=== PATIENT | male | born 1955 | race African-American/Black ===

== ENCOUNTER 2017-11-16 12:19 | Emergency (ER) | payer OTHER ==
[~2017-11-16] VITALS: Ht 188 cm; Wt 109.0 kg
[~2017-11-16 12:19] MED LIST: ALLO300T2 PO; ASPI1TAB57 PO; DICL1GEL7 TOPICAL; HYDR-3535 PO; HYDR50TA3 PO; LOSA100T PO; NEUR400C PO; OMEP20TA93 PO; OXYC-405 PO; SOMA350T PO
[2017-11-16 12:25] VITALS: BP 116/59; PULSE 77; RESP 18; TEMP 99; O2SAT 95
[2017-11-16] MEDS ORDERED: LIDOCAINE HCL 1% PF 30 ML VIAL INFIL ONE (13:00)
[2017-11-16] MEDS ORDERED: TETANUS/DIPHTHERIA TOXOID ADULT 0.5 ML VIAL IM ONE (13:00)
--- NOTE | 2017-11-16 13:19 | PD ---
HPI Chief Complaint: Laceration/Skin Injury Time Seen by Provider: 12:53 Travel History International Travel<30 days: No Contact w/Intl Traveler<30days: No Traveled to known affect area: No History of Present Illness HPI 62-year-old male presents to emergency room with complaint of a cut to his right finger that occurred approximately 3 hours ago from a piece of ice in his deep freezer, and he cannot get the bleeding under control. Denies anticoagulant therapy. Unknown tetanus status. Denies pain. Denies paresthesias, loss of sensation, decreased range of motion to the affected finger. Symptoms are mild in severity. Has tried compression to control bleeding without success. No known aggravating or relieving factors. Primary care provider is Dr. Gandhi. Allergies to codeine. History of hypertension. Has no other medical complaints. No other modifying factors or associated signs and symptoms. PFSH Past Medical History Arthritis: No Asthma: No Autoimmune Disease: No Anxiety: Yes Depression: Yes Heart Rhythm Problems: No Cancer: No Cardiovascular Problems: Yes High Cholesterol: No Chemotherapy: No Chest Pain: No Congestive Heart Failure: No COPD: No Diabetes: No Endocrine: No GERD: Yes Glaucoma: No Genitourinary: No Hepatitis: No Hiatal Hernia: No Hypertension: Yes Immune Disorder: No Kidney Stones: No Musculoskeletal: Yes (ARTHRITIS) Neurologic: No Psychiatric: Yes Reproductive: No Respiratory: No Radiation Therapy: No Renal Failure: No Sickle Cell Disease: No Sleep Apnea: No Thyroid Disease: No Ulcer: No Past Surgical History Abdominal Surgery: Yes (appy) AICD: No Appendectomy: Yes Arteriovenous Shunt: No Body Medical Devices: GASTRIC SLEEVE Ear Surgery: No Endocrine Surgery: No Eye Surgery: No Genitourinary Surgery: Yes (VASECTOMY) Gynecologic Surgery: No Insulin Pump: No Joint Replacement: No Oral Surgery: No Pacemaker: No Other Surgery: Yes Social History Alcohol Use: Yes (OCC BEER) Tobacco Use: No Substance Use: No Allergies-Medications (Allergen,Severity, Reaction): Coded Allergies: codeine (Unverified Allergy, Mild, NAUSEA, 02/11/17) clonidine (Unverified Allergy, Unknown, 02/11/17) enalaprilat (Unverified Allergy, Unknown, 02/11/17) tramadol (Unverified Allergy, Unknown, 02/11/17) Reported Meds & Prescriptions Reported Meds & Active Scripts Active Neurontin (Gabapentin) 400 Mg Cap 400 Mg PO TID Lortab (Hydrocodone-Acetaminophen) 10-325 Mg Tab 1 Tab PO Q4H PRN Soma (Carisoprodol) 350 Mg Tab 350 Mg PO QID Oxycodone ER (Oxycodone HCl) 20 Mg Tab 20 Mg PO Q12HR Reported Diclofenac Topical 1% Gel 1 Applic TOPICAL QID Allopurinol 300 Mg Tab 300 Mg PO DAILY Aspirin 81 (Aspirin) 81 Mg Tabdr 162 Mg PO DAILY Hydrochlorothiazide 50 Mg Tab 50 Mg PO DAILY Omeprazole 20 Mg Tab 20 Mg PO DAILY Losartan (Losartan Potassium) 100 Mg Tab 100 Mg PO DAILY Review of Systems Except as stated in HPI: all other systems reviewed are Neg Physical Exam Narrative GENERAL: Well-nourished, well-developed black patient, in no acute distress SKIN: Warm and dry. Posterior aspect of right index finger with approximately 1 cm laceration in between the PIP and DIP joints; fingers with full range of motion and sensory intact; with good opposition; without erythema, edema; moderate amount of bright red drainage. HEAD: Atraumatic. Normocephalic. EYES: Pupils equal and round. No scleral icterus. No injection or drainage. ENT: Mucosa pink and moist. Airway patent. NECK: Trachea midline. CARDIOVASCULAR: Regular rate. RESPIRATORY: No accessory muscle use. GASTROINTESTINAL: Flat. MUSCULOSKELETAL: No obvious deformities. No clubbing. No cyanosis. No edema. NEUROLOGICAL: Awake and alert. Oriented 3. No obvious cranial nerve deficits. Motor grossly within normal limits. Normal speech. PSYCHIATRIC: Appropriate mood and affect; insight and judgment normal. Data Data Last Documented VS Vital Signs Date Time Temp Pulse Resp B/P (MAP) Pulse Ox O2 Delivery O2 Flow Rate FiO2 11/16/17 12:25 99.0 77 18 116/59 (78) 95 Orders Orders Lidocaine Pf 1% Inj (Xylocaine-Mpf 1% In (11/16/17 13:00) Tetanus/Diphtheria Tox Adult (Tetanus/Di (11/16/17 13:00) Ed Discharge Order (11/16/17 13:19) MDM Medical Decision Making Medical Screen Exam Complete: Yes Emergency Medical Condition: Yes Medical Record Reviewed: Yes Differential Diagnosis Laceration, cut, abrasion Narrative Course 62-year-old male with a laceration to his right index finger. See my procedure note for laceration repair. Tetanus updated in the ER. Strict patient to return to the emergency department or follow-up with primary care provider in 7- 10 days for suture removal. Instructed patient to follow up with primary care provider. Patient verbalizes understanding and agreement with treatment plan. Patient is medically cleared and stable for discharge. Discussed reasons to return to the emergency department. Patient agrees with treatment plan. The patients vital signs are stable and the patient is stable for outpatient follow- up and treatment. Patient discharged home, stable and in no acute distress. Procedures Procedure Narrative LACERATION LOCATION: Posterior aspect of right index finger in between the DIP and PIP joint LENGTH: 1 cm NUMBER OF STITCHES/DORY: 2 simple interrupted suture REPAIR: The area of the laceration was prepped with Betadine and sterilely draped. The laceration was infiltrated with 1% lidocaine. The wound was copiously irrigated and explored without evidence of foreign body, tendon injury or neurovascular injury. The wound was closed using 4-0 Prolene. This was a single layer repair. A sterile dressing was applied. The patient was advised to keep the dressing clean and dry. Patient tolerated the procedure well. Diagnosis Primary Impression: Finger laceration Qualified Codes: S61.210A - Laceration without foreign body of right index finger without damage to nail, initial encounter Referrals: Primary Care Physician Patient Instructions: Finger Laceration (ED), General Instructions Additional Instructions: Keep area clean and dry Limit right index finger activity to decrease risk of sutures coming undone Ibuprofen or Tylenol as directed and as needed for pain and inflammation Ice pack to area as needed to decrease pain Return to the emergency department or follow-up with your primary care provider in 7-10 days for suture removal Follow up with primary care provider within 2-4 days Return to the emergency department immediately with worsening of symptoms, particularly if reddened streaks up or down the affected extremity from the suture site, fever, numbness/tingling in the affected extremity, loss of sensation in the affected extremity, severe swelling of the affected Med/Other Pt SpecificInfo: No Change to Meds, No Meds Exist/No RX given Disposition: 01 DISCHARGE HOME Condition: Stable Melissa Pittman November 16, 2017 13:19
== END 2017-11-16 14:06 | disposition home or self-care (01) ==
LOC: NEPD 12:19
DX: S61.219A Laceration without foreign body of unspecified finger without damage to nail, initial encounter (principal); F32.9 Major depressive disorder, single episode, unspecified; I10 Essential (primary) hypertension; M19.90 Unspecified osteoarthritis, unspecified site; W26.8XXA Contact with other sharp object(s), not elsewhere classified, initial encounter; Z23 Encounter for immunization; Z79.82 Long term (current) use of aspirin
CPT/HCPCS: 12001; 90471; 90714